=== PATIENT | male | born 1955 | race Caucasian/White ===

== ENCOUNTER → 2018-05-10 | Outpatient (REF) | payer BC ==
[2018-05-10 17:43] LABS: COMPLEMENT C3 132 MG/DL (90-180)
[2018-05-10 17:43] LABS: COMPLEMENT C4 29.9 MG/DL (10-40)
[2018-05-10 17:59] LABS: TOTAL PROTEIN,RANDOM URINE 394.2 MG/DL (0.0-12.0); URINE TOTAL PROTEIN 394.2 MG/DL (0-12)
[2018-05-11 15:05] LABS: UPEP INTERPRETATION NO M-SPIKE NOTED; URINE VOLUME RANDOM ML
[2018-05-14 00:06] LABS: ANCA-ATYPICAL <1:20 titer (Neg:<1:20); ANTI DOUBLE STRAND-DNA AB <1 IU/mL (0-9); CYTOPLASMIC NEUTROP AB ANCA-C <1:20 titer (Neg:<1:20); PERINUCLEAR AB ANCA-P <1:20 titer (Neg:<1:20)
== END ==
LOC: M LAB REF 16:56
DX: R80.9 Proteinuria, unspecified (principal)
CPT/HCPCS: 86160

== ENCOUNTER → 2022-01-09 | Outpatient (CLI) | payer BC, OTHER | LOC: M RAD 10:23 | PROVIDERS: ATTEND Student in an Organized Health Care Education/Training Program | DX: N18.4 Chronic kidney disease, stage 4 (severe) (principal); E11.22 Type 2 diabetes mellitus with diabetic chronic kidney disease; R80.1 Persistent proteinuria, unspecified; I12.9 Hypertensive chronic kidney disease with stage 1 through stage 4 chronic kidney disease, or unspecified chronic kidney disease; D63.1 Anemia in chronic kidney disease; E83.9 Disorder of mineral metabolism, unspecified; M89.9 Disorder of bone, unspecified; N28.1 Cyst of kidney, acquired; N28.89 Other specified disorders of kidney and ureter ==

== ENCOUNTER 2022-04-30 16:31 | Emergency (ER) | payer OTHER ==
[~2022-04-30] VITALS: Ht 167.6 cm; Wt 98.4 kg
[2022-04-30] MEDS ORDERED: TRAM50TA2 (18:59)
[2022-04-30] MEDS ORDERED: PARO40TA2 (18:59)
[2022-04-30] MEDS ORDERED: ATOR40TA75 (18:59)
[2022-04-30] MEDS ORDERED: PANT40TA29 (18:59)
[2022-04-30] MEDS ORDERED: LOSA50TA28 (18:59)
[2022-04-30] MEDS ORDERED: OZEM2INJ (18:59)
[2022-04-30] MEDS ORDERED: CALC1CAP31 PO (18:59)
[2022-04-30] MEDS ORDERED: MAGN400T33 (18:59)
[2022-04-30] MEDS ORDERED: TORS20TA2 (18:59)
[2022-04-30] MEDS ORDERED: GABA-1171 (18:59)
[2022-04-30] MEDS ORDERED: ALLO300T2 (18:59)
[2022-04-30] MEDS ORDERED: ALBU8.5H (18:59)
[2022-04-30] MEDS ORDERED: SODI650T (18:59)
[2022-04-30] MEDS ORDERED: FERR325T19 (18:59)
[2022-04-30] MEDS ORDERED: FURO20TA2 (18:59)
[2022-04-30 19:18] LABS: BASO # 0.1 10^3/uL (0.0-0.2); BASO % 0.8 % (0.0-1.0); EOS # 0.6 10^3/uL (0.0-0.5); EOS % 5.8 % (0.0-3.0); HEMATOCRIT 38.6 % (42.0-52.0); HEMOGLOBIN 13.1 g/dl (13.5-17.5); LYMPH # 2.2 10^3/uL (1.5-5.0); LYMPH % 21.1 % (24.0-44.0); MEAN CORPUSCULAR HEMOGLOBIN 30.5 pg (27.0-33.0); MEAN CORPUSCULAR HGB CONC 33.9 g/dl (32.0-36.5); MEAN CORPUSCULAR VOLUME 89.8 fl (80.0-96.0); MONO # 0.6 10^3/uL (0.0-0.8); MONO % 5.7 % (2.0-8.0); NEUTROPHILS # 6.8 10^3/uL (1.5-8.5); NEUTROPHILS % 66.2 % (36.0-66.0); PLATELET COUNT, AUTOMATED 197 10^3/uL (150-450); WHITE BLOOD COUNT 10.3 10^3/uL (4.0-10.0)
[2022-04-30 19:46] LABS: CALCIUM LEVEL 8.5 MG/DL (8.8-10.2); CREATININE FOR GFR 3.41 MG/DL (0.70-1.30); GLOMERULAR FILTRATION RATE 19.3 (>49); POTASSIUM SERUM 5.2 MEQ/L (3.5-5.1)
[2022-04-30 20:29] LABS: APPEARANCE, URINE CLEAR (CLEAR); BACTERIA, URINE AUTO NEGATIVE (NEGATIVE); BILIRUBIN, URINE AUTO NEGATIVE (NEGATIVE); BLOOD, URINE BLOOD NEGATIVE (NEGATIVE); COLOR, URINE YELLOW (YELLOW); GLUCOSE, URINE (UA) AUTO 1+ mg/dL (NEGATIVE); KETONE, URINE AUTO NEGATIVE (NEGATIVE); LEUKOCYTE ESTERASE, URINE AUTO NEGATIVE (NEGATIVE); NITRITE, URINE AUTO NEGATIVE (NEGATIVE); PROTEIN, URINE AUTO 3+ mg/dL (NEGATIVE); RBC, URINE AUTO 1 /HPF (0-3); SPECIFIC GRAVITY URINE AUTO 1.013 (1.002-1.035); SQUAMOUS EPITHELIAL CELL UR AU 0 /HPF (0-6); UROBILINOGEN, URINE AUTO 0.2 mg/dL (0.0-2.0); WBC, URINE AUTO 1 /HPF (0-3)
[2022-04-30 21:12] VITALS: BP 162/80
== END 2022-04-30 21:14 | disposition home or self-care (01) ==
LOC: M ED 16:31
DX: N18.30 Chronic kidney disease, stage 3 unspecified (principal); E11.9 Type 2 diabetes mellitus without complications; I10 Essential (primary) hypertension; E78.5 Hyperlipidemia, unspecified; Z79.899 Other long term (current) drug therapy

== ENCOUNTER → 2022-11-20 | Outpatient (REF) | payer OTHER, MEDICAID ==
[~2022-11-20] MED LIST: ALBU8.5H; ALLO300T2; ATOR40TA75; CALC1CAP31 PO; FERR325T19; FURO20TA2; GABA-1171; LOSA50TA28; MAGN400T33; OZEM2INJ; PANT40TA29; PARO40TA2; SODI650T; TORS20TA2; TRAM50TA2
[2022-11-20 17:58] LABS: CREATININE, URINE 68.3 MG/DL
[2022-11-20 18:42] LABS: MALB URINE SIEMENS > 3800.0 MG/DL; MAU/CREAT RATIO 5563.6 MCG/MG (0.0-30.0)
== END ==
LOC: M LAB REF 16:42
PROVIDERS: ATTEND Internal Medicine Nephrology
DX: E11.22 Type 2 diabetes mellitus with diabetic chronic kidney disease (principal); N18.9 Chronic kidney disease, unspecified

== ENCOUNTER → 2023-05-04 | Outpatient (CLI) | payer OTHER | LOC: M RAD 13:25 | PROVIDERS: ATTEND Surgery Vascular Surgery | DX: N18.6 End stage renal disease (principal) ==

== ENCOUNTER 2023-07-27 06:03 | Day surgery (SDC) | payer OTHER ==
[~2023-07-27] VITALS: Ht 167.6 cm; Wt 94.8 kg
[~2023-07-27 06:03] MED LIST changes: -ALBU8.5H; +ALBU8.5H INH; -ALLO300T2; +ALLO300T2 PO; +AMLO1TAB24 PO; +ATOR1TAB19 PO; +CALC500T31 PO; +CARV12.5 PO; +CYAN-1 PO; +FOLI1TAB11 PO; -FURO20TA2; +FURO20TA2 PO; -GABA-1171; +GABA-1171 PO; +HYDR-3713 PO; +ISOS20TA4 PO; -LOSA50TA28; +LOSA50TA28 PO; -MAGN400T33; +MAGN400T33 PO; -PANT40TA29; +PANT40TA29 PO; +PARO20TA3 PO; +PAXI20TA30 PO; +RENATAB6 PO; +ROCA0.5C PO; +SEMA1PEN2 SC; +TUMS500C PO; +VITA100093 PO; +ceFAZolin SOD 2 GM in IV 1 EA IV ONE
[2023-07-27] MEDS ORDERED: D5W/0.2% SODIUM CHLORIDE 1,000 ML IV SCH (06:20)
[2023-07-27] MEDS ORDERED: INSULIN LISPRO (NovoLOG) PER UNIT SC PRN ×2 (06:20→09:10)
[2023-07-27 06:39] LABS: HEMOGLOBIN 13.7 g/dl (13.5-17.5); MEAN CORPUSCULAR HEMOGLOBIN 29.8 pg (27.0-33.0); MEAN CORPUSCULAR HGB CONC 33.4 g/dl (32.0-36.5); MEAN CORPUSCULAR VOLUME 89.1 fl (80.0-96.0); PLATELET COUNT, AUTOMATED 166 10^3/uL (150-450); WHITE BLOOD COUNT 12.3 10^3/uL (4.0-10.0)
[2023-07-27 06:51] LABS: PROTHROMBIN TIME 12.9 SECONDS (12.5-14.5)
[2023-07-27 07:07] LABS: CALCIUM LEVEL 8.2 MG/DL (8.3-10.6); CREATININE FOR GFR 6.23 MG/DL (0.70-1.30); GLOMERULAR FILTRATION RATE 9.6 (>49); POTASSIUM SERUM 4.8 MMOL/L (3.5-5.1)
[2023-07-27] MEDS ORDERED: propofoL 200 MG/20 ML VIAL As Ordered ONE ×2 (07:11→09:01)
[2023-07-27] MEDS ORDERED: LIDOCAINE 2% 100MG/5ML SDV (FOR ANES.) As Ordered ONE (07:11)
[2023-07-27] MEDS ORDERED: MIDAZOLAM INJ 2MG/2ML VIAL As Ordered ONE (07:12)
[2023-07-27] MEDS ORDERED: fentaNYL 100 MCG/2 ML INJECTION As Ordered ONE (07:12)
[2023-07-27] MEDS ORDERED: LIDOCAINE 1% SDV 30ML VIAL As Ordered ONE (07:13)
[2023-07-27] MEDS ORDERED: PAPAVERINE HCL 60MG 2ML VIAL (30MG/ML) As Ordered ONE (07:14)
[2023-07-27] MEDS ORDERED: ROCURONIUM BROMIDE 50MG/5ML VIAL As Ordered ONE (07:44)
[2023-07-27] MEDS ORDERED: SUGAMMADEX SODIUM 500 MG/5 ML VIAL (BRIDION) As Ordered ONE (08:21)
[2023-07-27] MEDS ORDERED: ACETAMINOPHEN 1000MG 100ML IV BAG As Ordered ONE (08:21)
[2023-07-27] MEDS ORDERED: METOCLOPRAMIDE INJ 10MG/2ML VIAL As Ordered ONE (08:21)
[2023-07-27] MEDS ORDERED: ONDANSETRON 4MG 2ML VIAL As Ordered ONE (08:21)
[2023-07-27] MEDS ORDERED: HEPARIN SOD (PORCINE) 5000UNITS/ML 1ML VIAL/SYRINGE As Ordered ONE (08:25)
[2023-07-27] MEDS ORDERED: PHENYLephrine 500MCG 5ML (100MCG/ML) SYRINGE As Ordered ONE (08:47)
[2023-07-27] MEDS ORDERED: ONDANSETRON 4MG 2ML VIAL IV PRN (09:10)
[2023-07-27] MEDS ORDERED: HYDROMORPHONE HCL 0.5 MG/ 0.5 ML SYRINGE IV PRN (09:10)
[2023-07-27] MEDS ORDERED: oxyCODONE 5MG TAB PO PRN (09:10)
[2023-07-27] MEDS ORDERED: fentaNYL 100 MCG/2 ML INJECTION IV PRN (09:10)
[2023-07-27 11:11] VITALS: BP 136/68; TEMP 97.4; O2SAT 94
== END 2023-07-27 11:12 | disposition home or self-care (01) ==
LOC: M SDC 06:03
PROVIDERS: ATTEND Surgery Vascular Surgery
DX: N18.6 End stage renal disease (principal); Z99.2 Dependence on renal dialysis; E11.22 Type 2 diabetes mellitus with diabetic chronic kidney disease; R06.83 Snoring; Z79.899 Other long term (current) drug therapy
CPT/HCPCS: 36415; 36821; 80048; 85027; 85610; 86850; 86900; 86901; 93005; J0131; J0665; J0690; J2250; J2371; J2405; J2440; J2765; J3010